=== PATIENT | male | born 1990 | race Caucasian/White ===

== ENCOUNTER 2016-10-14 16:27 | Emergency (ER) | payer BC ==
[~2016-10-14] VITALS: Ht 165.1 cm; Wt 68.2 kg
[2016-10-14 16:28] VITALS: BP 143/66
[2016-10-14] MEDS ORDERED: diazePAM 5 MG TAB PO ONE (17:30)
--- NOTE | 2016-10-14 18:13 | REP ---
Clinical: Shortness of breath . Comparison: None . Technique: PA and lateral. Findings: The mediastinum and cardiac silhouette are normal. The lung oleary are clear and without acute consolidation, effusion, or pneumothorax. The skeletal structures are intact and normal. Impression: 1. No acute cardiopulmonary process. Signed by Sam Arevalo MD 10/14/2016 06:03 P
[2016-10-14] MEDS ORDERED: LORA0.5T11 PO (18:43)
--- NOTE | 2016-10-15 19:21 | ECGEPIP ---
Stationary ECG Study [facility] - ED Test Date: 2016-10-14 Pat Name: TO DUNCAN Department: Room: - Gender: M Poster: MATTY : 1990 Requested By: Jose Miguel Trinh Order Number: [id number] Reading MD: Simona Lord Measurements Intervals [place] Rate: 66 P: 54 TX: 165 QRS: 46 QRSD: 92 T: 36 QT: 381 QTc: 401 Interpretive Statements SINUS RHYTHM WITH SINUS ARRHYTHMIA POSSIBLE RIGHT VENTRICULAR CONDUCTION DELAY NO OLD FOR COMPARISON Electronically Signed On 10-15-2016 19:21:23 EDT by Simona Lord
== END 2016-10-14 18:52 | disposition home or self-care (01) ==
LOC: M ED 16:27
DX: F41.0 Panic disorder [episodic paroxysmal anxiety] (principal); Z86.79 Personal history of other diseases of the circulatory system